=== PATIENT | male | born 1965 | race Caucasian/White ===

== ENCOUNTER 2022-04-04 07:55 | Day surgery (SDC) | payer OTHER ==
[~2022-04-04] VITALS: Ht 180.3 cm; Wt 83.9 kg
[~2022-04-04 07:55] MED LIST: AMOXICILLIN875 MG PO; AUGMENTIN875TAB OR; BETHANECHOL50 MG OR; BETHANECHOL50 MG PO; CRESTOR10 MG PO; CVS OMEPRAZOLE20 MG PO; FENOFIBRATE48 MG PO; FLONASE NASAL50 MCG; KEFLEX500 MG PO; LANSOPRAZOLE15 MG PO; LOVASTATIN10 M1 PO; LOVASTATIN20 M1 PO; LOVASTATIN20 MG PO; MAXZIDE-2537.5 MG/TA PO; MONTELUKAST SOD10 MG PO; NEOMYCIN/POLYMYXIN/G AS; NEXIUM40 M1 PO; NEXIUM40 MG PO; NITROFURANTN100 M2 PO; OMEPRAZOLE20 MG PO; TAMSULOSIN0.4 MG PO; TRICOR145 MG PO; VIAGRA100 MG PO
[2022-04-04] MEDS ORDERED: NITROFURANTN100 MG PO (08:10)
[2022-04-04 11:46] VITALS: BP 110/68
== END 2022-04-04 11:35 | disposition home or self-care (01) | DRG 697 ==
LOC: ORM 07:55
PROVIDERS: ATTEND Urology
PROC: 0T7D8ZZ Dilation of Urethra, Via Natural or Artificial Opening Endoscopic (ICD-10-PCS; principal; 2022-04-04)
DX: N35.912 Unspecified bulbous urethral stricture, male (principal); N13.39 Other hydronephrosis; N13.8 Other obstructive and reflux uropathy; N31.8 Other neuromuscular dysfunction of bladder; N40.1 Benign prostatic hyperplasia with lower urinary tract symptoms; R33.8 Other retention of urine; K59.09 Other constipation; N41.1 Chronic prostatitis; K21.9 Gastro-esophageal reflux disease without esophagitis; E78.5 Hyperlipidemia, unspecified; H81.09 Meniere's disease, unspecified ear; T14.8XXS Other injury of unspecified body region, sequela; X58.XXXS Exposure to other specified factors, sequela
CPT/HCPCS: C1769; J1956

== ENCOUNTER 2022-11-29 11:46 | Emergency (ER) | payer OTHER ==
[~2022-11-29] VITALS: Ht 180.3 cm; Wt 89.0 kg
[~2022-11-29 11:46] MED LIST changes: +NITROFURANTN100 MG PO
[2022-11-29 12:04] VITALS: BP 144/101
[2022-11-29] MEDS ORDERED: LIPITOR10 M1 PO (12:09)
[2022-11-29 12:15] VITALS: BP 143/88
[2022-11-29] MEDS ORDERED: TRAMADOL HYDROC50 M1 PO (13:05)
[2022-11-29] MEDS ORDERED: ZOFRAN4 MG/TAB PO (13:05)
[2022-11-29] MEDS ORDERED: METRONIDAZOLE500 MG PO (13:05)
[2022-11-29] MEDS ORDERED: LEVAQUIN750 M1 PO (13:05)
[2022-11-29 13:13] VITALS: BP 143/88
== END 2022-11-29 13:29 | disposition home or self-care (01) | DRG 159 ==
LOC: ED 11:46
DX: R68.84 Jaw pain (principal)

== ENCOUNTER 2023-05-11 08:31 | Day surgery (SDC) | payer OTHER ==
[~2023-05-11] VITALS: Ht 180.3 cm; Wt 88.5 kg
[~2023-05-11 08:31] MED LIST changes: +CIALIS5 MG PO; +CIPROFLOXACN500 MG PO; +LEVAQUIN750 M1 PO; +LIPITOR10 M1 PO; +METRONIDAZOLE500 MG PO; +TRAMADOL HYDROC50 M1 PO; +ZOFRAN4 MG/TAB PO
[2023-05-11 10:52] VITALS: BP 114/76
== END 2023-05-11 10:56 | disposition home or self-care (01) | DRG 951 ==
LOC: ENDO 08:31
PROVIDERS: ATTEND Internal Medicine Gastroenterology
PROC: 0DBK8ZX Excision of Ascending Colon, Via Natural or Artificial Opening Endoscopic, Diagnostic (ICD-10-PCS; principal; 2023-05-11)
PROC: 0DBL8ZX Excision of Transverse Colon, Via Natural or Artificial Opening Endoscopic, Diagnostic (ICD-10-PCS; 2023-05-11)
DX: Z12.11 Encounter for screening for malignant neoplasm of colon (principal); D12.3 Benign neoplasm of transverse colon; D12.2 Benign neoplasm of ascending colon; K63.89 Other specified diseases of intestine; K64.8 Other hemorrhoids; K59.09 Other constipation; K21.9 Gastro-esophageal reflux disease without esophagitis; E78.5 Hyperlipidemia, unspecified